=== PATIENT | male | born 1935 | race Caucasian/White ===

== ENCOUNTER 2019-12-20 14:46 | Inpatient (IN) ==
[2019-12-20 15:32] LABS: ABS Basophils 0.1 10^3/ul (0-0.2); ABS Lymphocytes 1.5 10^3/ul (1.0-4.8); Eosinophil % 0.1 %; Hematocrit 46 % (42-52); Hemoglobin 15.2 g/dL (14.0-18.0); Lymphocyte % 12.2 %; Mean Corpuscular HGB Conc 33 g/dL (31-36); Mean Corpuscular Hemoglobin 31 pg (27-31); Mean Corpuscular Volume 92 fL (80-94); Mean Platelet Volume 7.1 fL (7.4-10.4); Platelet Count 344 10^3/uL (150-450); Red Blood Count 4.96 10^6 /uL (4.18-5.48); Red Cell Distribution Width 17 % (10-15); White Blood Count 12.6 10^3/uL (3.5-10.8)
[2019-12-20 15:52] LABS: INR 1.17 (0.82-1.09)
[2019-12-20] MEDS ORDERED: NS 0.9% 1000 ml BAG 1,000 ML IV ONE (15:55)
[2019-12-20 15:57] LABS: Troponin I 0.03 ng/mL (<0.03)
[2019-12-20 16:14] LABS: ALT 30 U/L (7-52); AST 33 U/L (13-39); Albumin 3.7 g/dL (3.2-5.2); Albumin/Globulin Ratio 0.8 (1-3); Alkaline Phosphatase 118 U/L (34-104); Anion Gap 8 mmol/L (2-11); BUN/Creatinine Ratio 24.4 (8-20); Blood Urea Nitrogen 19 mg/dL (6-24); CO2 Carbon Dioxide 27 mmol/L (22-32); Calcium 9.2 mg/dL (8.6-10.3); Chloride 97 mmol/L (101-111); EGFR African American 114.2 (>60); EGFR Non-African American 94.4 (>60); Globulin 4.6 g/dL (2-4); Glucose 115 mg/dL (70-100); Potassium 4.1 mmol/L (3.5-5.0); Sodium 132 mmol/L (135-145); Total Protein 8.3 g/dL (6.4-8.9)
[2019-12-20] MEDS ORDERED: Diltiazem IV push/loading dose 5 MG/ML 5 ML vial (25 mg) IV SLOW PU ONE (16:17)
[2019-12-20] MEDS ORDERED: Iohexol 300 (CONTRAST) 10 ML SDV IV ONE (16:18)
[2019-12-20 16:47] LABS: Magnesium 2.1 mg/dL (1.9-2.7)
[2019-12-20] MEDS ORDERED: Diltiazem (ADVAN VIAL) 100 MG/100 ML ADDV.BAG IV SCH ×2 (17:00→21:00)
[2019-12-20 17:02] LABS: TSH Ultra Thyroid Stim Horm 3.63 mcIU/mL (0.34-5.60)
[2019-12-20 18:30] LABS: Troponin I 0.03 ng/mL (<0.03)
[2019-12-21] MEDS ORDERED: Ondansetron 4 mg VIAL 2 MG/ML 2 ml VIAL IV ONE (01:02)
[2019-12-21 06:20] LABS: ABS Basophils 0.1 10^3/ul (0-0.2); ABS Lymphocytes 1.6 10^3/ul (1.0-4.8); ABS Monocytes 0.7 10^3/ul (0-0.8); ABS Neutrophils 8.1 10^3/ul (1.5-7.7); Eosinophil % 0.3 %; Hematocrit 42 % (42-52); Hemoglobin 13.8 g/dL (14.0-18.0); Mean Corpuscular HGB Conc 33 g/dL (31-36); Mean Corpuscular Hemoglobin 31 pg (27-31); Mean Corpuscular Volume 92 fL (80-94); Mean Platelet Volume 7.4 fL (7.4-10.4); Platelet Count 289 10^3/uL (150-450); Red Cell Distribution Width 18 % (10-15); White Blood Count 10.5 10^3/uL (3.5-10.8)
[2019-12-21 06:32] LABS: Anion Gap 2 mmol/L (2-11); BUN/Creatinine Ratio 18.7 (8-20); Blood Urea Nitrogen 14 mg/dL (6-24); CO2 Carbon Dioxide 31 mmol/L (22-32); Calcium 8.7 mg/dL (8.6-10.3); Chloride 99 mmol/L (101-111); EGFR African American 119.5 (>60); EGFR Non-African American 98.7 (>60); Glucose 98 mg/dL (70-100); Magnesium 2.1 mg/dL (1.9-2.7); Potassium 4.2 mmol/L (3.5-5.0); Sodium 132 mmol/L (135-145)
[2019-12-21 06:42] LABS: Troponin I 0.04 ng/mL (<0.03)
[2019-12-21] MEDS ORDERED: Influenza VAC *QUAD* 2020-21* 0.5 ML SYRINGE IM ONE (09:00)
[2019-12-21] MEDS ORDERED: Digoxin IV 0.5 MG/2 ML AMP (0.25 MG/ML) IV SLOW PU ONE (09:29)
[2019-12-21] MEDS ORDERED: Perflutren Lipid Microsphere 3 ML VIAL ONE (11:37)
[2019-12-22 06:00] LABS: ABS Eosinophils 0.1 10^3/ul (0-0.6); ABS Lymphocytes 1.5 10^3/ul (1.0-4.8); ABS Monocytes 0.8 10^3/ul (0-0.8); ABS Neutrophils 6.2 10^3/ul (1.5-7.7); Eosinophil % 1.4 %; Hematocrit 43 % (42-52); Hemoglobin 14.2 g/dL (14.0-18.0); Lymphocyte % 17.1 %; Mean Corpuscular HGB Conc 33 g/dL (31-36); Mean Corpuscular Hemoglobin 31 pg (27-31); Mean Corpuscular Volume 92 fL (80-94); Platelet Count 261 10^3/uL (150-450); Red Blood Count 4.63 10^6 /uL (4.18-5.48); Red Cell Distribution Width 18 % (10-15); White Blood Count 8.6 10^3/uL (3.5-10.8)
[2019-12-22 06:13] LABS: Calcium 8.8 mg/dL (8.6-10.3); Potassium 4.4 mmol/L (3.5-5.0)
[2019-12-22 06:18] LABS: BUN/Creatinine Ratio 19.8 (8-20); Digoxin 0.5 ng/ml (0.8-2.0); EGFR African American 109.3 (>60); EGFR Non-African American 90.4 (>60)
[2019-12-22] MEDS ORDERED: Senna TAB 8.6 mg TAB PO PRN (20:07)
[2019-12-22] MEDS ORDERED: Docusate LIQ 100 MG/10 ML UDC PO PRN (20:42)
[2019-12-23 11:30] VITALS: BP 158/98
== END 2019-12-23 15:54 | disposition home or self-care (01) | DRG 309 ==
LOC: ED 14:46 → ICU 18:09 → MEDTELE 12-21 13:47
PROVIDERS: ADMIT Internal Medicine; ATTEND Pediatrics

== ENCOUNTER 2020-04-20 10:28 | Inpatient (IN) ==
[2020-04-20 12:20] LABS: Activated Partial Thrombo Time 27.6 seconds (26.0-38.0); INR 1.23 (0.82-1.09)
[2020-04-20 12:33] LABS: Albumin 3.3 g/dL (3.2-5.2); Albumin/Globulin Ratio 0.8 (1-3); BUN/Creatinine Ratio 31.6 (8-20); C Reactive Protein 65.41 mg/L (<8.01); Calcium 9.2 mg/dL (8.6-10.3); EGFR Non-African American 75.2 (>60); Potassium 4.6 mmol/L (3.5-5.0); Total Bilirubin 1.2 mg/dL (0.2-1.0); Total Protein 7.3 g/dL (6.4-8.9)
[2020-04-20] MEDS ORDERED: NS 0.9% 1000 ml BAG 1,000 ML IV ONE ×3 (13:45→21:24)
[2020-04-20] MEDS ORDERED: Ondansetron 4 mg VIAL 2 MG/ML 2 ml VIAL IV ONE (13:46)
[2020-04-20 14:29] LABS: Urine Appearance Clear; Urine Bilirubin Negative (Negative); Urine Blood Negative (Negative); Urine Color Yellow; Urine Glucose Negative (Negative); Urine Ketones Negative (Negative); Urine Nitrite Negative (Negative); Urine Protein Negative (Negative); Urine Specific Gravity 1.012 (1.010-1.030); Urine Urobilinogen Negative (Negative)
[2020-04-20 15:43] LABS: ABS Eosinophils 0.1 10^3/ul (0-0.6); ABS Lymphocytes 1.4 10^3/ul (1.0-4.8); ABS Monocytes 0.9 10^3/ul (0-0.8); ABS Neutrophils 8.1 10^3/ul (1.5-7.7); Eosinophil % 0.5 %; Hematocrit 37 % (42-52); Hemoglobin 12.4 g/dL (14.0-18.0); Lymphocyte % 13.5 %; Mean Corpuscular HGB Conc 34 g/dL (31-36); Mean Corpuscular Hemoglobin 31 pg (27-31); Mean Corpuscular Volume 93 fL (80-94); Mean Platelet Volume 7.7 fL (7.4-10.4); Nucleated Red Blood Cells % 0.1; Platelet Count 302 10^3/uL (150-450); Red Blood Count 3.98 10^6 /uL (4.18-5.48); Red Cell Distribution Width 17 % (10-15); White Blood Count 10.5 10^3/uL (3.5-10.8)
[2020-04-20] MEDS ORDERED: Morphine 2 MG/ML SYRINGE IV PRN (16:14)
[2020-04-20] MEDS ORDERED: Ondansetron 4 mg VIAL 2 MG/ML 2 ml VIAL IV PRN (16:15)
[2020-04-20] MEDS ORDERED: Hydrocortisone INJ 100 MG/2ML 2 ML VIAL IV SCH (21:26)
[2020-04-20] MEDS: Hydrocortisone INJ 100 MG/2ML 2 ML VIAL IV SCH (22:05)
[2020-04-20 22:10] LABS: ABS Basophils 0.1 10^3/ul (0-0.2); ABS Lymphocytes 1.6 10^3/ul (1.0-4.8); ABS Monocytes 0.9 10^3/ul (0-0.8); ABS Neutrophils 9.5 10^3/ul (1.5-7.7); Hematocrit 34 % (42-52); Hemoglobin 11.1 g/dL (14.0-18.0); Lymphocyte % 13.2 %; Mean Corpuscular HGB Conc 33 g/dL (31-36); Mean Corpuscular Hemoglobin 31 pg (27-31); Mean Corpuscular Volume 93 fL (80-94); Mean Platelet Volume 7.3 fL (7.4-10.4); Platelet Count 295 10^3/uL (150-450); Red Blood Count 3.61 10^6 /uL (4.18-5.48); Red Cell Distribution Width 16 % (10-15); White Blood Count 12.1 10^3/uL (3.5-10.8)
[2020-04-20 22:22] LABS: Digoxin 0.8 ng/ml (0.8-2.0)
[2020-04-20 22:23] LABS: BUN/Creatinine Ratio 32.3 (8-20); Calcium 8.5 mg/dL (8.6-10.3); EGFR African American 93.2 (>60); Potassium 4.3 mmol/L (3.5-5.0)
[2020-04-21] MEDS ORDERED: Lactated Ringers 1000 ml BAG 1,000 ML IV ONE (00:44)
[2020-04-21 01:11] LABS: Hematocrit 30 % (42-52); Hemoglobin 10.3 g/dL (14.0-18.0); Mean Corpuscular HGB Conc 34 g/dL (31-36); Mean Corpuscular Hemoglobin 32 pg (27-31); Mean Corpuscular Volume 93 fL (80-94); Mean Platelet Volume 6.9 fL (7.4-10.4); Platelet Count 257 10^3/uL (150-450); Red Blood Count 3.23 10^6 /uL (4.18-5.48); Red Cell Distribution Width 16 % (10-15); White Blood Count 10.1 10^3/uL (3.5-10.8)
[2020-04-21] MEDS: LACTATED RINGERS 1000 ML BAG IV SCH ×3 (03:31→16:20)
[2020-04-21] MEDS: Hydrocortisone INJ 100 MG/2ML 2 ML VIAL IV SCH ×3 (06:39→22:40)
[2020-04-21 07:01] LABS: ABS Lymphocytes 1.4 10^3/ul (1.0-4.8); ABS Monocytes 0.8 10^3/ul (0-0.8); ABS Neutrophils 7.8 10^3/ul (1.5-7.7); Hematocrit 31 % (42-52); Hemoglobin 10.5 g/dL (14.0-18.0); Lymphocyte % 14.1 %; Mean Corpuscular HGB Conc 34 g/dL (31-36); Mean Corpuscular Hemoglobin 32 pg (27-31); Mean Corpuscular Volume 94 fL (80-94); Platelet Count 260 10^3/uL (150-450); Red Blood Count 3.33 10^6 /uL (4.18-5.48); Red Cell Distribution Width 16 % (10-15)
[2020-04-21 07:38] LABS: Calcium 8.1 mg/dL (8.6-10.3); EGFR African American 99.4 (>60); EGFR Non-African American 82.1 (>60); Potassium 4.5 mmol/L (3.5-5.0)
[2020-04-21] MEDS ORDERED: NS 0.9% 500 ml BAG 500 ML IV ONE (16:17)
[2020-04-22] MEDS: LACTATED RINGERS 1000 ML BAG IV SCH ×2 (00:13→06:19)
[2020-04-22 02:05] LABS: Urine Appearance Clear; Urine Bilirubin Negative (Negative); Urine Blood 1+ (Negative); Urine Color Yellow; Urine Glucose Negative (Negative); Urine Ketones Negative (Negative); Urine Nitrite Negative (Negative); Urine Protein Negative (Negative); Urine Specific Gravity 1.024 (1.010-1.030); Urine Urobilinogen Negative (Negative)
[2020-04-22 02:11] LABS: Urine Bacteria Absent (Absent); Urine Red Blood Cell 1+(3-5/hpf) (Absent); Urine Squamous Epithelial Cell Present (Absent); Urine White Blood Cell Trace(0-5/hpf) (Absent)
[2020-04-22] MEDS: Hydrocortisone INJ 100 MG/2ML 2 ML VIAL IV SCH ×3 (06:06→21:30)
[2020-04-22 06:14] LABS: ABS Lymphocytes 1.2 10^3/ul (1.0-4.8); ABS Monocytes 0.7 10^3/ul (0-0.8); ABS Neutrophils 9.3 10^3/ul (1.5-7.7); Hematocrit 29 % (42-52); Hemoglobin 9.6 g/dL (14.0-18.0); Lymphocyte % 10.5 %; Mean Corpuscular HGB Conc 34 g/dL (31-36); Mean Corpuscular Hemoglobin 31 pg (27-31); Mean Corpuscular Volume 93 fL (80-94); Platelet Count 234 10^3/uL (150-450); Red Blood Count 3.08 10^6 /uL (4.18-5.48); Red Cell Distribution Width 17 % (10-15); White Blood Count 11.2 10^3/uL (3.5-10.8)
[2020-04-22 06:29] LABS: BUN/Creatinine Ratio 34.3 (8-20); Calcium 8.4 mg/dL (8.6-10.3); EGFR African American 136.1 (>60); EGFR Non-African American 112.5 (>60); Potassium 4.3 mmol/L (3.5-5.0)
[2020-04-22 14:32] LABS: Magnesium 1.8 mg/dL (1.9-2.7)
[2020-04-22] MEDS ORDERED: Magnesium Sulfate 2 gm BAG 2 GM/50 ML BAG IVPB ONE (14:36)
[2020-04-23] MEDS: Hydrocortisone INJ 100 MG/2ML 2 ML VIAL IV SCH ×3 (05:27→21:57)
[2020-04-23 05:45] LABS: ABS Lymphocytes 1.4 10^3/ul (1.0-4.8); ABS Monocytes 0.8 10^3/ul (0-0.8); ABS Neutrophils 9.5 10^3/ul (1.5-7.7); Hematocrit 27 % (42-52); Hemoglobin 9.1 g/dL (14.0-18.0); Lymphocyte % 11.9 %; Mean Corpuscular HGB Conc 33 g/dL (31-36); Mean Corpuscular Hemoglobin 31 pg (27-31); Mean Corpuscular Volume 93 fL (80-94); Platelet Count 283 10^3/uL (150-450); Red Blood Count 2.94 10^6 /uL (4.18-5.48); Red Cell Distribution Width 17 % (10-15); White Blood Count 11.7 10^3/uL (3.5-10.8)
[2020-04-23 06:00] LABS: BUN/Creatinine Ratio 28.4 (8-20); Calcium 8.4 mg/dL (8.6-10.3); EGFR African American 121.3 (>60); EGFR Non-African American 100.3 (>60); Potassium 4.7 mmol/L (3.5-5.0)
[2020-04-24] MEDS: Hydrocortisone INJ 100 MG/2ML 2 ML VIAL IV SCH ×3 (05:39→23:10)
[2020-04-24 06:25] LABS: ABS Lymphocytes 1.4 10^3/ul (1.0-4.8); ABS Monocytes 0.6 10^3/ul (0-0.8); ABS Neutrophils 8.4 10^3/ul (1.5-7.7); Hematocrit 26 % (42-52); Hemoglobin 8.8 g/dL (14.0-18.0); Mean Corpuscular HGB Conc 34 g/dL (31-36); Mean Corpuscular Hemoglobin 32 pg (27-31); Mean Corpuscular Volume 93 fL (80-94); Mean Platelet Volume 6.8 fL (7.4-10.4); Platelet Count 268 10^3/uL (150-450); Red Blood Count 2.77 10^6 /uL (4.18-5.48); Red Cell Distribution Width 17 % (10-15); White Blood Count 10.4 10^3/uL (3.5-10.8)
[2020-04-24 06:45] LABS: BUN/Creatinine Ratio 42.3 (8-20); EGFR African American 127.3 (>60); EGFR Non-African American 105.2 (>60); Potassium 4.3 mmol/L (3.5-5.0)
[2020-04-25] MEDS: Hydrocortisone INJ 100 MG/2ML 2 ML VIAL IV SCH (05:33)
[2020-04-25 07:56] VITALS: BP 113/75
== END 2020-04-25 10:20 | DRG 562 ==
LOC: ED 10:28 → SSU 10:28
PROVIDERS: ADMIT Internal Medicine; ATTEND Internal Medicine

== ENCOUNTER 2020-04-25 08:18 | Inpatient (IN) ==
[2020-04-25] MEDS: Senna TAB 8.6 mg TAB PO PRN (19:55)
[2020-04-26] MEDS ORDERED: HYDROcodone/ACETAMIN 5/325 mg TAB PO PRN (12:06)
[2020-04-26] MEDS: D5NS 0.9% 1000 ml BAG 1,000 ML IV SCH (13:44)
[2020-04-26] MEDS: Calcium/Vitamin D TAB 250/125 TAB PO SCH (20:08)
[2020-04-27 07:15] LABS: ABS Lymphocytes 2.5 10^3/ul (1.0-4.8); ABS Monocytes 0.8 10^3/ul (0-0.8); ABS Neutrophils 8.8 10^3/ul (1.5-7.7); Eosinophil % 0.4 %; Hematocrit 26 % (42-52); Hemoglobin 8.6 g/dL (14.0-18.0); Lymphocyte % 20.7 %; Mean Corpuscular HGB Conc 33 g/dL (31-36); Mean Corpuscular Hemoglobin 32 pg (27-31); Mean Corpuscular Volume 95 fL (80-94); Mean Platelet Volume 6.5 fL (7.4-10.4); Nucleated Red Blood Cells % 0.1; Platelet Count 310 10^3/uL (150-450); Red Blood Count 2.74 10^6 /uL (4.18-5.48); Red Cell Distribution Width 17 % (10-15); White Blood Count 12.2 10^3/uL (3.5-10.8)
[2020-04-27 07:34] LABS: Albumin 2.6 g/dL (3.2-5.2); Albumin/Globulin Ratio 0.9 (1-3); BUN/Creatinine Ratio 41.4 (8-20); Calcium 8.2 mg/dL (8.6-10.3); EGFR African American 129.4 (>60); EGFR Non-African American 106.9 (>60); Globulin 2.9 g/dL (2-4); Potassium 4.3 mmol/L (3.5-5.0); Total Bilirubin 0.9 mg/dL (0.2-1.0); Total Protein 5.5 g/dL (6.4-8.9)
[2020-04-27] MEDS: Calcium/Vitamin D TAB 250/125 TAB PO SCH ×2 (08:53→20:21)
[2020-04-27] MEDS: HYDROcodone/ACETAMIN 5/325 mg TAB PO PRN ×2 (09:01→13:55)
[2020-04-27] MEDS ORDERED: Polyethylene Glycol 3350 17 GM PACKET PO PRN (15:07)
[2020-04-27] MEDS: D5NS 0.9% 1000 ml BAG 1,000 ML IV SCH (16:07)
[2020-04-27] MEDS: Senna TAB 8.6 mg TAB PO PRN (20:21)
[2020-04-28 06:31] LABS: ABS Eosinophils 0.1 10^3/ul (0-0.6); ABS Lymphocytes 2.4 10^3/ul (1.0-4.8); ABS Monocytes 0.8 10^3/ul (0-0.8); ABS Neutrophils 9.5 10^3/ul (1.5-7.7); Eosinophil % 0.4 %; Hematocrit 25 % (42-52); Hemoglobin 8.7 g/dL (14.0-18.0); Lymphocyte % 18.7 %; Mean Corpuscular HGB Conc 34 g/dL (31-36); Mean Corpuscular Hemoglobin 32 pg (27-31); Mean Corpuscular Volume 94 fL (80-94); Mean Platelet Volume 6.3 fL (7.4-10.4); Nucleated Red Blood Cells % 0.1; Platelet Count 332 10^3/uL (150-450); Red Blood Count 2.69 10^6 /uL (4.18-5.48); Red Cell Distribution Width 17 % (10-15); White Blood Count 12.8 10^3/uL (3.5-10.8)
[2020-04-28] MEDS: Calcium/Vitamin D TAB 250/125 TAB PO SCH ×2 (08:44→21:07)
[2020-04-28] MEDS: HYDROcodone/ACETAMIN 5/325 mg TAB PO PRN ×3 (08:44→21:07)
[2020-04-28] MEDS: Psyllium PAK PO SCH (08:45)
[2020-04-28] MEDS ORDERED: D5NS 0.9% 1000 ml BAG 1,000 ML IV SCH ×2 (11:00→14:46)
[2020-04-28 13:00] LABS: Urine Appearance Cloudy; Urine Bilirubin Negative (Negative); Urine Blood 3+ (Negative); Urine Color Yellow; Urine Glucose Negative (Negative); Urine Ketones Negative (Negative); Urine Nitrite Positive (Negative); Urine Protein 2+(100 mg/dL) (Negative); Urine Specific Gravity 1.023 (1.010-1.030); Urine Urobilinogen Negative (Negative)
[2020-04-28 13:07] LABS: Urine Bacteria Absent (Absent); Urine Red Blood Cell 3+(>10/hpf) (Absent); Urine White Blood Cell Trace(0-5/hpf) (Absent)
[2020-04-28] MEDS: cefTRIAXone 1 gm/50 mL NS BAG 1 GM/50 ML BAG IVPB SCH (16:09)
[2020-04-29] MEDS: Calcium/Vitamin D TAB 250/125 TAB PO SCH ×2 (08:39→19:20)
[2020-04-29] MEDS: Psyllium PAK PO SCH (08:49)
[2020-04-29] MEDS: HYDROcodone/ACETAMIN 5/325 mg TAB PO PRN ×4 (09:38→23:33)
[2020-04-29] MEDS: cefTRIAXone 1 gm/50 mL NS BAG 1 GM/50 ML BAG IVPB SCH (15:22)
[2020-04-30 07:42] LABS: ABS Eosinophils 0.1 10^3/ul (0-0.6); ABS Lymphocytes 2.4 10^3/ul (1.0-4.8); ABS Monocytes 0.8 10^3/ul (0-0.8); ABS Neutrophils 8.8 10^3/ul (1.5-7.7); Hematocrit 28 % (42-52); Hemoglobin 9.5 g/dL (14.0-18.0); Lymphocyte % 19.6 %; Mean Corpuscular HGB Conc 34 g/dL (31-36); Mean Corpuscular Hemoglobin 32 pg (27-31); Mean Corpuscular Volume 95 fL (80-94); Mean Platelet Volume 6.4 fL (7.4-10.4); Platelet Count 403 10^3/uL (150-450); Red Blood Count 2.98 10^6 /uL (4.18-5.48); Red Cell Distribution Width 18 % (10-15); White Blood Count 12.2 10^3/uL (3.5-10.8)
[2020-04-30] MEDS: Calcium/Vitamin D TAB 250/125 TAB PO SCH ×2 (07:46→21:47)
[2020-04-30] MEDS: Psyllium PAK PO SCH (07:47)
[2020-04-30] MEDS: cefTRIAXone 1 gm/50 mL NS BAG 1 GM/50 ML BAG IVPB SCH (15:13)
[2020-04-30] MEDS: Senna TAB 8.6 mg TAB PO PRN (21:48)
[2020-04-30] MEDS: Nitrofurantoin (monohydrate/macrocrystals) 100 mg CAP PO SCH (21:49)
[2020-05-01] MEDS: HYDROcodone/ACETAMIN 5/325 mg TAB PO PRN (10:25)
[2020-05-01] MEDS: Nitrofurantoin (monohydrate/macrocrystals) 100 mg CAP PO SCH ×2 (10:25→21:41)
[2020-05-01] MEDS: Calcium/Vitamin D TAB 250/125 TAB PO SCH ×2 (10:25→21:40)
[2020-05-01] MEDS: Psyllium PAK PO SCH (10:26)
[2020-05-01] MEDS: Senna TAB 8.6 mg TAB PO PRN (21:41)
[2020-05-02] MEDS: Psyllium PAK PO SCH (09:22)
[2020-05-02] MEDS: Calcium/Vitamin D TAB 250/125 TAB PO SCH ×2 (09:24→20:23)
[2020-05-02] MEDS: Nitrofurantoin (monohydrate/macrocrystals) 100 mg CAP PO SCH ×2 (09:25→20:23)
[2020-05-02] MEDS: HYDROcodone/ACETAMIN 5/325 mg TAB PO PRN ×2 (14:55→20:24)
[2020-05-03] MEDS: Nitrofurantoin (monohydrate/macrocrystals) 100 mg CAP PO SCH ×2 (09:15→19:21)
[2020-05-03] MEDS: Calcium/Vitamin D TAB 250/125 TAB PO SCH ×2 (09:15→19:21)
[2020-05-03] MEDS: Psyllium PAK PO SCH (09:15)
[2020-05-03] MEDS: HYDROcodone/ACETAMIN 5/325 mg TAB PO PRN (21:04)
[2020-05-04 06:34] LABS: ABS Eosinophils 0.1 10^3/ul (0-0.6); ABS Monocytes 0.8 10^3/ul (0-0.8); ABS Neutrophils 6.5 10^3/ul (1.5-7.7); Eosinophil % 0.9 %; Hematocrit 27 % (42-52); Hemoglobin 9.2 g/dL (14.0-18.0); Mean Corpuscular HGB Conc 35 g/dL (31-36); Mean Corpuscular Hemoglobin 33 pg (27-31); Mean Corpuscular Volume 95 fL (80-94); Mean Platelet Volume 6.2 fL (7.4-10.4); Platelet Count 435 10^3/uL (150-450); Red Blood Count 2.79 10^6 /uL (4.18-5.48); Red Cell Distribution Width 19 % (10-15); White Blood Count 9.4 10^3/uL (3.5-10.8)
[2020-05-04 06:50] LABS: Albumin 2.7 g/dL (3.2-5.2); Albumin/Globulin Ratio 0.8 (1-3); BUN/Creatinine Ratio 30.8 (8-20); Calcium 8.2 mg/dL (8.6-10.3); EGFR African American 140.9 (>60); EGFR Non-African American 116.5 (>60); Globulin 3.2 g/dL (2-4); Potassium 3.9 mmol/L (3.5-5.0); Total Bilirubin 1.3 mg/dL (0.2-1.0); Total Protein 5.9 g/dL (6.4-8.9)
[2020-05-04] MEDS: Calcium/Vitamin D TAB 250/125 TAB PO SCH ×2 (12:11→20:09)
[2020-05-04] MEDS: Nitrofurantoin (monohydrate/macrocrystals) 100 mg CAP PO SCH ×2 (12:12→20:09)
[2020-05-04] MEDS: Psyllium PAK PO SCH (12:12)
[2020-05-04] MEDS: HYDROcodone/ACETAMIN 5/325 mg TAB PO PRN (20:10)
[2020-05-05] MEDS: Calcium/Vitamin D TAB 250/125 TAB PO SCH ×2 (09:22→20:48)
[2020-05-05] MEDS: Nitrofurantoin (monohydrate/macrocrystals) 100 mg CAP PO SCH ×2 (09:22→20:48)
[2020-05-05] MEDS: Psyllium PAK PO SCH (09:23)
[2020-05-05] MEDS: HYDROcodone/ACETAMIN 5/325 mg TAB PO PRN ×2 (13:38→20:47)
[2020-05-05] MEDS: Senna TAB 8.6 mg TAB PO PRN (20:48)
[2020-05-06] MEDS: HYDROcodone/ACETAMIN 5/325 mg TAB PO PRN ×2 (10:01→21:35)
[2020-05-06] MEDS: Calcium/Vitamin D TAB 250/125 TAB PO SCH ×2 (10:04→21:36)
[2020-05-06] MEDS: Nitrofurantoin (monohydrate/macrocrystals) 100 mg CAP PO SCH ×2 (10:07→21:35)
[2020-05-06] MEDS: Psyllium PAK PO SCH (10:09)
[2020-05-06] MEDS: Magnesium Hydroxide LIQ 30 ML UDC PO PRN (18:12)
[2020-05-06] MEDS: guaiFENesin 100 mg/5 ml LIQ unit dose cup PO PRN (21:23)
[2020-05-07] MEDS: Calcium/Vitamin D TAB 250/125 TAB PO SCH ×2 (08:29→20:56)
[2020-05-07] MEDS: Psyllium PAK PO SCH (08:29)
[2020-05-07] MEDS: HYDROcodone/ACETAMIN 5/325 mg TAB PO PRN ×2 (08:30→20:57)
[2020-05-08] MEDS: guaiFENesin 100 mg/5 ml LIQ unit dose cup PO PRN ×2 (03:38→11:48)
[2020-05-08] MEDS: Calcium/Vitamin D TAB 250/125 TAB PO SCH ×2 (11:46→20:16)
[2020-05-08] MEDS: Psyllium PAK PO SCH (11:47)
[2020-05-08] MEDS: HYDROcodone/ACETAMIN 5/325 mg TAB PO PRN (20:17)
[2020-05-09] MEDS: guaiFENesin 100 mg/5 ml LIQ unit dose cup PO PRN (02:00)
[2020-05-09] MEDS: Calcium/Vitamin D TAB 250/125 TAB PO SCH ×2 (07:28→20:14)
[2020-05-09] MEDS: Psyllium PAK PO SCH (07:29)
[2020-05-09] MEDS: HYDROcodone/ACETAMIN 5/325 mg TAB PO PRN (18:20)
[2020-05-09] MEDS: Senna TAB 8.6 mg TAB PO PRN (20:13)
[2020-05-10] MEDS: guaiFENesin 100 mg/5 ml LIQ unit dose cup PO PRN ×2 (01:12→09:20)
[2020-05-10 06:47] LABS: ABS Basophils 0.1 10^3/ul (0-0.2); ABS Eosinophils 0.1 10^3/ul (0-0.6); ABS Lymphocytes 1.8 10^3/ul (1.0-4.8); ABS Monocytes 0.8 10^3/ul (0-0.8); ABS Neutrophils 5.5 10^3/ul (1.5-7.7); Eosinophil % 0.8 %; Hematocrit 28 % (42-52); Hemoglobin 9.2 g/dL (14.0-18.0); Mean Corpuscular HGB Conc 33 g/dL (31-36); Mean Corpuscular Hemoglobin 32 pg (27-31); Mean Corpuscular Volume 97 fL (80-94); Mean Platelet Volume 6.1 fL (7.4-10.4); Platelet Count 390 10^3/uL (150-450); Red Blood Count 2.85 10^6 /uL (4.18-5.48); Red Cell Distribution Width 19 % (10-15); White Blood Count 8.2 10^3/uL (3.5-10.8)
[2020-05-10] MEDS: Psyllium PAK PO SCH (09:19)
[2020-05-10] MEDS: Calcium/Vitamin D TAB 250/125 TAB PO SCH ×2 (09:20→20:49)
[2020-05-10] MEDS: HYDROcodone/ACETAMIN 5/325 mg TAB PO PRN (18:02)
[2020-05-10] MEDS: Senna TAB 8.6 mg TAB PO PRN (20:49)
[2020-05-11] MEDS: guaiFENesin 100 mg/5 ml LIQ unit dose cup PO PRN (04:51)
[2020-05-11 06:54] LABS: ABS Basophils 0.1 10^3/ul (0-0.2); ABS Eosinophils 0.1 10^3/ul (0-0.6); ABS Lymphocytes 2.1 10^3/ul (1.0-4.8); ABS Monocytes 0.8 10^3/ul (0-0.8); ABS Neutrophils 5.7 10^3/ul (1.5-7.7); Eosinophil % 1.3 %; Hematocrit 29 % (42-52); Hemoglobin 9.6 g/dL (14.0-18.0); Lymphocyte % 24.4 %; Mean Corpuscular HGB Conc 33 g/dL (31-36); Mean Corpuscular Hemoglobin 32 pg (27-31); Mean Corpuscular Volume 97 fL (80-94); Mean Platelet Volume 6.1 fL (7.4-10.4); Platelet Count 396 10^3/uL (150-450); Red Blood Count 3.02 10^6 /uL (4.18-5.48); Red Cell Distribution Width 18 % (10-15); White Blood Count 8.8 10^3/uL (3.5-10.8)
[2020-05-11 07:12] LABS: Albumin 2.8 g/dL (3.2-5.2); Albumin/Globulin Ratio 0.8 (1-3); BUN/Creatinine Ratio 26.1 (8-20); Calcium 8.3 mg/dL (8.6-10.3); EGFR African American 131.5 (>60); EGFR Non-African American 108.7 (>60); Globulin 3.3 g/dL (2-4); Total Bilirubin 1.3 mg/dL (0.2-1.0); Total Protein 6.1 g/dL (6.4-8.9)
[2020-05-11] MEDS: Calcium/Vitamin D TAB 250/125 TAB PO SCH ×2 (11:08→22:02)
[2020-05-11] MEDS: HYDROcodone/ACETAMIN 5/325 mg TAB PO PRN ×2 (11:09→19:28)
[2020-05-11] MEDS: Psyllium PAK PO SCH (11:15)
[2020-05-12] MEDS: guaiFENesin 100 mg/5 ml LIQ unit dose cup PO PRN ×2 (02:14→20:56)
[2020-05-12] MEDS: Calcium/Vitamin D TAB 250/125 TAB PO SCH ×2 (08:50→20:52)
[2020-05-12] MEDS: Magnesium Hydroxide LIQ 30 ML UDC PO PRN (08:58)
[2020-05-12] MEDS: Psyllium PAK PO SCH (09:01)
[2020-05-12] MEDS: HYDROcodone/ACETAMIN 5/325 mg TAB PO PRN (23:36)
[2020-05-13] MEDS: guaiFENesin 100 mg/5 ml LIQ unit dose cup PO PRN (05:21)
[2020-05-13] MEDS: Magnesium Hydroxide LIQ 30 ML UDC PO PRN (08:11)
[2020-05-13] MEDS: Calcium/Vitamin D TAB 250/125 TAB PO SCH ×2 (08:12→20:56)
[2020-05-13] MEDS: Psyllium PAK PO SCH (08:31)
[2020-05-14] MEDS: HYDROcodone/ACETAMIN 5/325 mg TAB PO PRN ×2 (03:03→18:30)
[2020-05-14] MEDS: Psyllium PAK PO SCH (09:10)
[2020-05-14] MEDS: Calcium/Vitamin D TAB 250/125 TAB PO SCH ×2 (09:10→20:41)
[2020-05-14] MEDS: Senna TAB 8.6 mg TAB PO PRN (20:44)
[2020-05-15] MEDS: Calcium/Vitamin D TAB 250/125 TAB PO SCH ×2 (08:14→21:07)
[2020-05-15] MEDS: Psyllium PAK PO SCH (08:15)
[2020-05-15] MEDS: guaiFENesin 100 mg/5 ml LIQ unit dose cup PO PRN (08:20)
[2020-05-15] MEDS: HYDROcodone/ACETAMIN 5/325 mg TAB PO PRN (18:28)
[2020-05-16] MEDS: Calcium/Vitamin D TAB 250/125 TAB PO SCH ×2 (09:00→21:17)
[2020-05-16] MEDS: Psyllium PAK PO SCH (09:00)
[2020-05-16] MEDS: HYDROcodone/ACETAMIN 5/325 mg TAB PO PRN ×2 (10:54→21:17)
[2020-05-16] MEDS: Albuterol/Ipratropium NEB.SOL (2.5/0.5 MG) 3 ML NEB.SOLN INH SCH (18:52)
[2020-05-17] MEDS: Albuterol/Ipratropium NEB.SOL (2.5/0.5 MG) 3 ML NEB.SOLN INH SCH ×5 (01:41→21:25)
[2020-05-17] MEDS: Calcium/Vitamin D TAB 250/125 TAB PO SCH ×2 (10:20→20:45)
[2020-05-17] MEDS: Psyllium PAK PO SCH (11:53)
[2020-05-17] MEDS: HYDROcodone/ACETAMIN 5/325 mg TAB PO PRN (18:57)
[2020-05-18] MEDS: Albuterol/Ipratropium NEB.SOL (2.5/0.5 MG) 3 ML NEB.SOLN INH SCH ×4 (01:35→20:15)
[2020-05-18 07:18] LABS: ABS Lymphocytes 1.3 10^3/ul (1.0-4.8); ABS Monocytes 0.9 10^3/ul (0-0.8); ABS Neutrophils 6.4 10^3/ul (1.5-7.7); Eosinophil % 0.4 %; Hematocrit 29 % (42-52); Hemoglobin 9.8 g/dL (14.0-18.0); Mean Corpuscular HGB Conc 33 g/dL (31-36); Mean Corpuscular Hemoglobin 32 pg (27-31); Mean Corpuscular Volume 97 fL (80-94); Platelet Count 343 10^3/uL (150-450); Red Blood Count 3.03 10^6 /uL (4.18-5.48); Red Cell Distribution Width 18 % (10-15); White Blood Count 8.6 10^3/uL (3.5-10.8)
[2020-05-18 07:34] LABS: Albumin 2.9 g/dL (3.2-5.2); Albumin/Globulin Ratio 0.9 (1-3); Calcium 8.4 mg/dL (8.6-10.3); EGFR African American 123.3 (>60); EGFR Non-African American 101.9 (>60); Globulin 3.4 g/dL (2-4); Potassium 3.8 mmol/L (3.5-5.0); Total Bilirubin 1.1 mg/dL (0.2-1.0); Total Protein 6.3 g/dL (6.4-8.9)
[2020-05-18] MEDS: Calcium/Vitamin D TAB 250/125 TAB PO SCH ×2 (10:19→21:14)
[2020-05-18] MEDS: Psyllium PAK PO SCH (10:23)
[2020-05-18] MEDS: Magnesium Hydroxide LIQ 30 ML UDC PO PRN ×2 (10:27→17:20)
[2020-05-18] MEDS: HYDROcodone/ACETAMIN 5/325 mg TAB PO PRN (21:14)
[2020-05-18] MEDS: Senna TAB 8.6 mg TAB PO PRN (21:14)
[2020-05-19] MEDS: Albuterol/Ipratropium NEB.SOL (2.5/0.5 MG) 3 ML NEB.SOLN INH SCH ×4 (00:55→20:14)
[2020-05-19] MEDS: Calcium/Vitamin D TAB 250/125 TAB PO SCH ×2 (08:57→21:09)
[2020-05-19] MEDS: HYDROcodone/ACETAMIN 5/325 mg TAB PO PRN ×2 (08:58→21:16)
[2020-05-19] MEDS: Psyllium PAK PO SCH (09:00)
[2020-05-19] MEDS: Magnesium Hydroxide LIQ 30 ML UDC PO PRN (18:35)
[2020-05-19] MEDS: Senna TAB 8.6 mg TAB PO PRN (21:13)
[2020-05-20] MEDS: Albuterol/Ipratropium NEB.SOL (2.5/0.5 MG) 3 ML NEB.SOLN INH SCH ×4 (01:28→20:17)
[2020-05-20] MEDS: HYDROcodone/ACETAMIN 5/325 mg TAB PO PRN ×2 (08:24→19:39)
[2020-05-20] MEDS: Calcium/Vitamin D TAB 250/125 TAB PO SCH ×2 (08:24→21:53)
[2020-05-20] MEDS: Magnesium Hydroxide LIQ 30 ML UDC PO PRN (08:25)
[2020-05-20] MEDS: Psyllium PAK PO SCH (08:45)
[2020-05-21] MEDS: Albuterol/Ipratropium NEB.SOL (2.5/0.5 MG) 3 ML NEB.SOLN INH SCH ×4 (02:08→21:39)
[2020-05-21] MEDS: Calcium/Vitamin D TAB 250/125 TAB PO SCH ×2 (07:23→20:06)
[2020-05-21] MEDS: Psyllium PAK PO SCH (07:30)
[2020-05-21] MEDS: HYDROcodone/ACETAMIN 5/325 mg TAB PO PRN (16:35)
[2020-05-22] MEDS: Albuterol/Ipratropium NEB.SOL (2.5/0.5 MG) 3 ML NEB.SOLN INH SCH ×5 (01:17→19:34)
[2020-05-22] MEDS: Calcium/Vitamin D TAB 250/125 TAB PO SCH ×2 (08:23→21:00)
[2020-05-22] MEDS: Psyllium PAK PO SCH (13:25)
[2020-05-22] MEDS: HYDROcodone/ACETAMIN 5/325 mg TAB PO PRN (21:31)
[2020-05-23] MEDS: Albuterol/Ipratropium NEB.SOL (2.5/0.5 MG) 3 ML NEB.SOLN INH SCH ×4 (02:03→20:04)
[2020-05-23 08:09] LABS: ABS Basophils 0.1 10^3/ul (0-0.2); ABS Eosinophils 0.1 10^3/ul (0-0.6); ABS Lymphocytes 1.8 10^3/ul (1.0-4.8); ABS Monocytes 0.7 10^3/ul (0-0.8); ABS Neutrophils 6.1 10^3/ul (1.5-7.7); Eosinophil % 1.5 %; Hematocrit 32 % (42-52); Hemoglobin 10.9 g/dL (14.0-18.0); Lymphocyte % 20.5 %; Mean Corpuscular HGB Conc 34 g/dL (31-36); Mean Corpuscular Hemoglobin 32 pg (27-31); Mean Corpuscular Volume 95 fL (80-94); Platelet Count 493 10^3/uL (150-450); Red Blood Count 3.38 10^6 /uL (4.18-5.48); Red Cell Distribution Width 17 % (10-15); White Blood Count 8.8 10^3/uL (3.5-10.8)
[2020-05-23 08:16] LABS: Albumin 3.3 g/dL (3.2-5.2); Albumin/Globulin Ratio 0.8 (1-3); Calcium 8.9 mg/dL (8.6-10.3); EGFR African American 110.9 (>60); EGFR Non-African American 91.7 (>60); Potassium 3.4 mmol/L (3.5-5.0); Total Protein 7.3 g/dL (6.4-8.9)
[2020-05-23] MEDS: Calcium/Vitamin D TAB 250/125 TAB PO SCH ×2 (08:16→20:54)
[2020-05-23] MEDS: Psyllium PAK PO SCH (10:14)
[2020-05-23] MEDS: HYDROcodone/ACETAMIN 5/325 mg TAB PO PRN (20:54)
[2020-05-24] MEDS: Albuterol/Ipratropium NEB.SOL (2.5/0.5 MG) 3 ML NEB.SOLN INH SCH ×4 (02:00→20:25)
[2020-05-24] MEDS: Calcium/Vitamin D TAB 250/125 TAB PO SCH ×2 (09:06→20:50)
[2020-05-24] MEDS: Psyllium PAK PO SCH (09:07)
[2020-05-24] MEDS: Potassium Chloride LIQUID 20 MEQ/15 ML LIQUID PO SCH ×2 (09:07→20:50)
[2020-05-24] MEDS: HYDROcodone/ACETAMIN 5/325 mg TAB PO PRN (20:51)
[2020-05-25] MEDS: Albuterol/Ipratropium NEB.SOL (2.5/0.5 MG) 3 ML NEB.SOLN INH SCH ×4 (01:03→20:03)
[2020-05-25 07:18] LABS: Calcium 9.2 mg/dL (8.6-10.3); EGFR African American 107.8 (>60); EGFR Non-African American 89.1 (>60); Potassium 3.9 mmol/L (3.5-5.0)
[2020-05-25] MEDS: Calcium/Vitamin D TAB 250/125 TAB PO SCH ×2 (08:15→21:00)
[2020-05-25] MEDS: Potassium Chloride LIQUID 20 MEQ/15 ML LIQUID PO SCH (08:16)
[2020-05-25] MEDS: Psyllium PAK PO SCH (08:19)
[2020-05-25] MEDS: HYDROcodone/ACETAMIN 5/325 mg TAB PO PRN ×2 (08:23→21:10)
[2020-05-25 22:54] LABS: Urine Appearance Cloudy; Urine Bilirubin Negative (Negative); Urine Blood 1+ (Negative); Urine Color Yellow; Urine Glucose Negative (Negative); Urine Ketones Negative (Negative); Urine Nitrite Positive (Negative); Urine Protein Negative (Negative); Urine Specific Gravity 1.018 (1.002-1.030); Urine Urobilinogen Negative (Negative)
[2020-05-25 22:56] LABS: Urine Bacteria Absent (Absent); Urine Red Blood Cell 3+(>10/hpf) (Absent); Urine White Blood Cell 3+(>20/hpf) (Absent)
[2020-05-26] MEDS: Albuterol/Ipratropium NEB.SOL (2.5/0.5 MG) 3 ML NEB.SOLN INH SCH ×4 (01:52→20:00)
[2020-05-26] MEDS ORDERED: Potassium Chlor 20 meq TAB.ER PO SCH (09:00)
[2020-05-26] MEDS: Calcium/Vitamin D TAB 250/125 TAB PO SCH (09:01)
[2020-05-26] MEDS: Psyllium PAK PO SCH (09:02)
[2020-05-26 16:09] VITALS: BP 140/84
== END 2020-05-26 22:35 | disposition home health service (06) | DRG 560 ==
LOC: PMRU 10:54
PROVIDERS: ADMIT Physical Medicine & Rehabilitation; ATTEND Physical Medicine & Rehabilitation

== ENCOUNTER 2020-06-01 13:34 | Inpatient (IN) ==
[2020-06-01 15:55] LABS: ABS Monocytes 0.5 10^3/ul (0-0.8); Eosinophil % 0.1 %; Hematocrit 35 % (42-52); Hemoglobin 11.5 g/dL (14.0-18.0); Lymphocyte % 7.3 %; Mean Corpuscular HGB Conc 33 g/dL (31-36); Mean Corpuscular Hemoglobin 31 pg (27-31); Mean Corpuscular Volume 94 fL (80-94); Mean Platelet Volume 6.3 fL (7.4-10.4); Platelet Count 605 10^3/uL (150-450); Red Blood Count 3.73 10^6 /uL (4.18-5.48); Red Cell Distribution Width 16 % (10-15); White Blood Count 13.6 10^3/uL (3.5-10.8)
[2020-06-01 16:14] LABS: ALT 23 U/L (7-52); AST 27 U/L (13-39); Albumin 3.3 g/dL (3.2-5.2); Albumin/Globulin Ratio 0.8 (1-3); Alkaline Phosphatase 152 U/L (34-104); Anion Gap 4 mmol/L (2-11); BUN/Creatinine Ratio 28.9 (8-20); Blood Urea Nitrogen 26 mg/dL (6-24); C Reactive Protein 84.83 mg/L (<8.01); CO2 Carbon Dioxide 35 mmol/L (22-32); Calcium 9.6 mg/dL (8.6-10.3); Chloride 101 mmol/L (101-111); EGFR African American 96.8 (>60); Globulin 4.4 g/dL (2-4); Glucose 119 mg/dL (70-100); Potassium 3.9 mmol/L (3.5-5.0); Sodium 140 mmol/L (135-145); Total Protein 7.7 g/dL (6.4-8.9)
[2020-06-01 16:15] LABS: Digoxin 1.1 ng/ml (0.8-2.0)
[2020-06-01 16:19] LABS: Troponin I 0.06 ng/mL (<0.03)
[2020-06-01] MEDS ORDERED: Iodixanol (CONTRAST) 320 MG/ML 100 ML SDV IV ONE (16:22)
[2020-06-01] MEDS ORDERED: HYDROcodone/ACETAMIN 5/325 mg TAB PO PRN (20:26)
[2020-06-01 20:27] LABS: Troponin I 0.06 ng/mL (<0.03)
[2020-06-01] MEDS: IPRATROPIUM BR (NF)0.06% NASAL 1 SPRAY BTL BOTH NARES SCH (22:46)
[2020-06-01] MEDS: Calcium/Vitamin D TAB 250/125 TAB PO SCH (22:49)
[2020-06-02 01:21] LABS: Urine Appearance Cloudy; Urine Bilirubin Negative (Negative); Urine Blood 1+ (Negative); Urine Color Yellow; Urine Glucose Negative (Negative); Urine Ketones Negative (Negative); Urine Nitrite Positive (Negative); Urine Protein 1+(30 mg/dL) (Negative); Urine Specific Gravity 1.053 (1.002-1.030); Urine Urobilinogen Negative (Negative)
[2020-06-02 01:29] LABS: Urine Bacteria Absent (Absent); Urine Red Blood Cell Trace(0-2/hpf) (Absent); Urine White Blood Cell 3+(>20/hpf) (Absent)
[2020-06-02 01:30] LABS: Troponin I 0.05 ng/mL (<0.03)
[2020-06-02] MEDS ORDERED: Vancomycin 1,000 MG in NS 0.9% 250 ml 250 ML IVPB ONE (06:05)
[2020-06-02 06:06] LABS: ABS Eosinophils 0.1 10^3/ul (0-0.6); ABS Monocytes 0.9 10^3/ul (0-0.8); ABS Neutrophils 9.2 10^3/ul (1.5-7.7); Hematocrit 32 % (42-52); Hemoglobin 10.5 g/dL (14.0-18.0); Lymphocyte % 16.4 %; Mean Corpuscular HGB Conc 33 g/dL (31-36); Mean Corpuscular Hemoglobin 31 pg (27-31); Mean Corpuscular Volume 94 fL (80-94); Mean Platelet Volume 6.3 fL (7.4-10.4); Platelet Count 485 10^3/uL (150-450); Red Blood Count 3.41 10^6 /uL (4.18-5.48); Red Cell Distribution Width 16 % (10-15); White Blood Count 12.2 10^3/uL (3.5-10.8)
[2020-06-02 06:15] LABS: INR 1.45 (0.82-1.09)
[2020-06-02 06:21] LABS: BUN/Creatinine Ratio 32.9 (8-20); Calcium 9.1 mg/dL (8.6-10.3); EGFR African American 107.8 (>60); EGFR Non-African American 89.1 (>60); Potassium 3.7 mmol/L (3.5-5.0)
[2020-06-02] MEDS ORDERED: Vancomycin per Pharmacy 1 EA NOTE FOLLOW UP SCH (07:00)
[2020-06-02] MEDS: Calcium/Vitamin D TAB 250/125 TAB PO SCH ×2 (08:59→21:20)
[2020-06-02] MEDS: IPRATROPIUM BR (NF)0.06% NASAL 1 SPRAY BTL BOTH NARES SCH ×2 (09:08→21:23)
[2020-06-02] MEDS: Vancomycin 500 MG in NS 0.9% 250 ML IVPB SCH (16:26)
[2020-06-03] MEDS: Vancomycin 500 MG in NS 0.9% 250 ML IVPB SCH (04:00)
[2020-06-03 05:24] LABS: ABS Eosinophils 0.1 10^3/ul (0-0.6); ABS Lymphocytes 2.2 10^3/ul (1.0-4.8); ABS Monocytes 0.9 10^3/ul (0-0.8); ABS Neutrophils 10.8 10^3/ul (1.5-7.7); Eosinophil % 0.8 %; Hematocrit 33 % (42-52); Hemoglobin 10.8 g/dL (14.0-18.0); Mean Corpuscular HGB Conc 33 g/dL (31-36); Mean Corpuscular Hemoglobin 31 pg (27-31); Mean Corpuscular Volume 94 fL (80-94); Mean Platelet Volume 6.1 fL (7.4-10.4); Platelet Count 552 10^3/uL (150-450); Red Blood Count 3.45 10^6 /uL (4.18-5.48); Red Cell Distribution Width 16 % (10-15)
[2020-06-03 05:34] LABS: BUN/Creatinine Ratio 36.6 (8-20); Calcium 8.9 mg/dL (8.6-10.3); EGFR African American 127.3 (>60); EGFR Non-African American 105.2 (>60); Magnesium 1.9 mg/dL (1.9-2.7); Potassium 3.4 mmol/L (3.5-5.0)
[2020-06-03] MEDS: Calcium/Vitamin D TAB 250/125 TAB PO SCH ×2 (08:31→21:23)
[2020-06-03] MEDS: IPRATROPIUM BR (NF)0.06% NASAL 1 SPRAY BTL BOTH NARES SCH ×2 (08:32→21:08)
[2020-06-03] MEDS: Ondansetron ODT 4 mg TAB 4 MG TAB SL PRN (09:10)
[2020-06-03] MEDS ORDERED: Potassium Chlor 20 meq TAB.ER PO ONE (09:58)
[2020-06-03 15:04] LABS: Erythrocyte Sed Rate 85 mm/Hr (0-19)
[2020-06-03] MEDS ORDERED: Vancomycin Trough Check NOTE FOLLOW UP ONE (15:30)
[2020-06-03] MEDS ORDERED: NS 0.9% 500 ml BAG 500 ML IV ONE (16:03)
[2020-06-04 06:52] LABS: ABS Basophils 0.1 10^3/ul (0-0.2); ABS Eosinophils 0.1 10^3/ul (0-0.6); ABS Monocytes 0.9 10^3/ul (0-0.8); ABS Neutrophils 10.9 10^3/ul (1.5-7.7); Eosinophil % 0.7 %; Hematocrit 36 % (42-52); Hemoglobin 11.4 g/dL (14.0-18.0); Lymphocyte % 14.2 %; Mean Corpuscular HGB Conc 32 g/dL (31-36); Mean Corpuscular Hemoglobin 30 pg (27-31); Mean Corpuscular Volume 95 fL (80-94); Mean Platelet Volume 6.7 fL (7.4-10.4); Platelet Count 568 10^3/uL (150-450); Red Blood Count 3.77 10^6 /uL (4.18-5.48); Red Cell Distribution Width 16 % (10-15); White Blood Count 13.9 10^3/uL (3.5-10.8)
[2020-06-04 07:06] LABS: BUN/Creatinine Ratio 29.1 (8-20); Calcium 9.3 mg/dL (8.6-10.3); EGFR African American 112.5 (>60); Potassium 4.2 mmol/L (3.5-5.0)
[2020-06-04] MEDS: IPRATROPIUM BR (NF)0.06% NASAL 1 SPRAY BTL BOTH NARES SCH (07:47)
[2020-06-04] MEDS: Ondansetron ODT 4 mg TAB 4 MG TAB SL PRN (09:05)
[2020-06-04] MEDS: Calcium/Vitamin D TAB 250/125 TAB PO SCH (10:01)
[2020-06-04 12:44] VITALS: BP 128/70
== END 2020-06-04 15:15 | disposition home health service (06) | DRG 546 ==
LOC: MEDTELE 13:34 → ED 13:34 → MEDTELE 22:56
PROVIDERS: ADMIT Internal Medicine; ATTEND Internal Medicine